=== PATIENT | male | born 1950 | race Caucasian/White ===

== ENCOUNTER 2020-04-21 18:29 | Emergency (ER) | payer OTHER ==
[~2020-04-21] VITALS: Ht 182.9 cm; Wt 88.5 kg
[2020-04-21] MEDS ORDERED: LOPRESSOR50 PO (18:36)
[2020-04-21 21:33] VITALS: BP 147/75
[2020-04-23] MEDS ORDERED: ASA81BEC PO (11:28)
[2020-04-23] MEDS ORDERED: MULTI VITAMIN1 EACH PO (11:29)
== END 2020-04-21 21:34 | disposition left against medical advice (07) ==
LOC: ER 18:29
DX: Z53.21 Procedure and treatment not carried out due to patient leaving prior to being seen by health care provider (principal)

== ENCOUNTER → 2020-04-23 | Outpatient (CLI) | payer OTHER ==
[~2020-04-23] VITALS: Ht 182.9 cm; Wt 83.0 kg
[~2020-04-23] MED LIST: ASA81BEC PO; LOPRESSOR50 PO; MULTI VITAMIN1 EACH PO
[2020-04-23 11:16] VITALS: BP 138/79
[2020-04-23 11:27] LABS: HEMATOCRIT 43.5 % (42.0-52.0); HEMOGLOBIN 15.1 gm/dL (14.0-18.0); MCH 30.9 pg (26.0-34.0); MCHC 34.7 g/dL (28.0-37.0); RBC 4.88 mil/uL (4.50-6.00); RDW 13.4 % (10.5-14.5); WBC 7.9 thou/uL (4.0-11.0)
[2020-04-23 11:45] LABS: POTASSIUM 4.3 mmol/L (3.5-5.1)
--- NOTE | 2020-04-23 17:43 | CATHLAB ---
[facility] [place] [address] INVASIVE PROCEDURE REPORT Name: SHANA BENEDICT Isaias Room #: REG OSMEL WrightAngus#: [id number] Admission: 04/23/20 Attend Phys: Mendel Young MD, Discharge: Date of : 54 Report #: [id number] THIS REPORT FOR: cc: Eb Orozco MD, Stany A. MD Mancuso, Gerald M. MD [facility] ~ APPROVED REPORT Study performed: 04/23/2020 11:11:26 Patient Details Patient Status: Out-Patient Room #: The patient is a 69 year-old male Event Personnel Mendel Young Manager Of Enterprise, Arianna David RTR Scrub, Annalee Ernandez RTR, EVAN Scrub, Maria Guadalupe Temple RTR Monitor, Tiara Pineda RN RN, Janay Sam RN software validation technician Performed Art Access - R femoral artery* Left Heart Cath w/or w/o Coronaries [id number] [facility] Aortogram Abdominal Peripheral Angio 156827 [id number] Initial Mod Sed Same Phys/QHP Gr5y 280006 55052 Mod Sed Same Phys/QHP Ea 780842 Hemostasis w/ Mynx Indication Chest pain Procedure Narrative The Right Groin^ was infiltrated with 1% Lidocaine subcutaneous anesthesia. A PINNACLE 6FR Sheath #[id number] sheath was inserted into the RFA^. Coronary angiography was performed using coronary diagnostic catheters. The right coronary system was accessed and visualized with a JR4 catheter. The left coronary system was accessed and visualized with a JL4 catheter. The left ventricle was accessed and visualized with a PIGTAILS catheter. Left ventriculogram was performed in 30 degree projection. An aortogram of the abdominal aorta was performed. Closure device was deployed with a 6 Fr PINNACLE 6FR Sheath #[id number]. The patient tolerated the procedure well and there were no complications associated with the procedure. There was no hematoma. Intraoperative Conscious Sedation Sedation start time: 1247 Case end Time: [facility] [address] [place] [address] INVASIVE PROCEDURE REPORT Name: SHANA BENEDICT Isaias Room #: [facility]#: [id number] Admission: 04/23/20 Attend Phys: Mendel Young, Discharge: Date of : 54 Report #: [id number] Fentanyl 50 mcg Versed 1 mg Fluoro Time: 1.50 minutes Dose: DAP 3400.40 cGycm2 458 mGy Contrast Type and Amount: Omnipaque 150 ml Hemodynamics The aortic pressure is 140/69 mmHg with a mean of 94 mmHg. The left ventricular pressure is 159/6 mmHg with a mean of mmHg. The left ventricular end diastolic pressure is 17 mmHg. Conclusion #1. Normal left jugular size and systolic function EF 60% #2 abdominal aortogram revealing wide patency abdominal aorta normal in caliber no aneurysm. Single renal arteries bilaterally are widely patent. 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 #4 LAD with mild diffuse disease no occlusive disease noted. Somewhat of an attenuated vessel at the anterior apex. #5 circumflex OM nondominant moderate distribution no occlusive disease #6 dominant right coronary artery moderate caliber no occlusive disease Recommendations and plan: Continue aggressive risk factor modification. No indication for coronary intervention. <ELECTRONICALLY SIGNED> By: Mendel Young MD, FACC 04/23/201742 42 42 Mendel Young MD, FACC /INF
== END | disposition home or self-care (01) ==
LOC: CATH 09:59
PROVIDERS: ATTEND Internal Medicine Cardiovascular Disease
DX: R07.9 Chest pain, unspecified (principal); I25.10 Atherosclerotic heart disease of native coronary artery without angina pectoris; I10 Essential (primary) hypertension; E78.00 Pure hypercholesterolemia, unspecified; E78.1 Pure hyperglyceridemia; K21.9 Gastro-esophageal reflux disease without esophagitis; Z98.890 Other specified postprocedural states; Z79.899 Other long term (current) drug therapy; Z82.49 Family history of ischemic heart disease and other diseases of the circulatory system; Z79.82 Long term (current) use of aspirin

== ENCOUNTER → 2020-04-23 | Outpatient (CLI) | payer OTHER | LOC: SJCVCIMAG 09:47 | PROVIDERS: ATTEND Internal Medicine Cardiovascular Disease | DX: I08.8 Other rheumatic multiple valve diseases (principal); I65.23 Occlusion and stenosis of bilateral carotid arteries; R94.31 Abnormal electrocardiogram [ECG] [EKG]; I10 Essential (primary) hypertension; E78.00 Pure hypercholesterolemia, unspecified; E78.1 Pure hyperglyceridemia; Z79.899 Other long term (current) drug therapy; Z82.49 Family history of ischemic heart disease and other diseases of the circulatory system ==

== ENCOUNTER → 2020-12-31 | Outpatient (CLI) | payer OTHER | LOC: SJCVC 13:40 | PROVIDERS: ATTEND Internal Medicine Cardiovascular Disease | DX: R94.31 Abnormal electrocardiogram [ECG] [EKG] (principal); I25.10 Atherosclerotic heart disease of native coronary artery without angina pectoris; I10 Essential (primary) hypertension; E78.00 Pure hypercholesterolemia, unspecified; E11.9 Type 2 diabetes mellitus without complications; I44.0 Atrioventricular block, first degree; Z87.891 Personal history of nicotine dependence; Z72.89 Other problems related to lifestyle; Z79.899 Other long term (current) drug therapy ==